=== PATIENT | female | born 1940 | race Hispanic/Latino ===

== ENCOUNTER 2017-06-25 08:42 | Outpatient (CLI) | payer MEDICARE ==
--- NOTE | 2017-06-25 09:47 | RAD ---
CHEST TWO VIEWS: History: Dyspnea. Comparison: 07-20-14 FINDINGS: Right upper lobe nodules similar to slightly increased in size from the comparison examination. Remainder of the lungs are clear. Prominent right nipple shadow. Lungs are mildly hyperinflated. Cardiac silhouette and mediastinal contours are similar. IMPRESSION: Right upper lobe hazy opacity versus nodule. CT of the chest recommended for further evaluation. Code LN Code T POS: OFF
== END 2017-06-25 08:43 | disposition home or self-care (01) ==
LOC: RAD 08:42
PROVIDERS: ATTEND Internal Medicine Critical Care Medicine
DX: R06.00 Dyspnea, unspecified (principal)
CPT/HCPCS: 71046

== ENCOUNTER 2020-07-12 13:57 | Inpatient (IN) | payer MEDICARE ==
[2020-07-12] MEDS ORDERED: HYDROcodone/Acetaminophen 5/325 mg Tablet ONE (14:36)
[2020-07-12] MEDS ORDERED: Ondansetron PF 4 MG/2 ML Vial ONE (15:41)
[2020-07-12] MEDS ORDERED: Morphine 4 MG/ML VIAL ONE (15:41)
[2020-07-12 16:13] LABS: #Eosinphils 0.1 thou/uL (0.0-0.7); #Lymphocytes 1.1 thou/uL (1.20-3.40); #Monocytes 0.5 thou/uL (0.11-0.59); #Neutrophils 8.5 thou/uL (1.40-6.50); %Basophils 0.4 % (0.0-1.0); %Eosinophils 0.8 % (0.0-10.0); %Lymphocytes 10.9 % (21.0-51.0); %Monocytes 5.3 % (0.0-10.0); %Neutrophils 82.7 % (42.0-75.0); Hemoglobin 14.9 g/dL (12.0-16.0); Mean Corpuscular HGB CONC 33.8 g/dL (32.0-36.0); Mean Corpuscular Volume 91.6 fL (78.0-98.0); Mean Platelet Volume 8.2 fL (7.4-10.4); Platelet Count 215 thou/uL (130-400); Red Blood Cell (RBC) Count 4.82 mill/uL (4.20-5.40); White Blood Cell (WBC) Count 10.3 thou/uL (4.8-10.8)
[2020-07-12 16:19] LABS: INR-International Normal Ratio 0.9; PTT 26.7 sec (22.9-36.1); Prothrombin Time 12.5 sec (12.0-14.7)
[2020-07-12 16:37] LABS: ALT (SGPT) 12 U/L (8-55); AST (SGOT) 18 U/L (5-34); Albumin 4.3 g/dL (3.4-4.8); Alkaline Phosphatase 88 U/L (40-110); Anion Gap 17 mmol/L (10-20); BUN (Urea Nitrogen) 19 mg/dL (9.8-20.1); Bilirubin, Total 0.4 mg/dL (0.2-1.2); Calc. Creatinine Clearance 0 mL/min (70-130); Calcium 9.5 mg/dL (7.8-10.44); Carbon Dioxide 22 mmol/L (23-31); Chloride 101 mmol/L (98-107); Globulin 3.4 g/dL (2.4-3.5); Glucose 101 mg/dL (83-110); Potassium 3.3 mmol/L (3.5-5.1); Protein, Total 7.7 g/dL (5.8-8.1); Sodium 137 mmol/L (136-145)
[2020-07-12] MEDS ORDERED: Dextrose 5% in Water 1,000 ML IV PRN (16:53)
[2020-07-12] MEDS ORDERED: Dextrose 50% Abboject 50 ML SYRINGE SLOW IVP PRN (16:53)
[2020-07-12] MEDS ORDERED: Ondansetron ODT 4 MG TAB PO PRN (16:58)
[2020-07-12] MEDS ORDERED: Morphine 2 MG/ML VIAL SLOW IVP PRN (16:58)
[2020-07-12] MEDS ORDERED: Albuterol Sulfate 1.25 MG/3 ML NEB IPPB PRN (17:02)
[2020-07-12] MEDS ORDERED: Potassium Phosphate 30 MMOL in Sodium Chloride 0.9% 500 ML IVPB SCH (17:15)
[2020-07-12] MEDS: Acetaminophen 325 MG TAB PO SCH ×2 (20:48→21:00)
[2020-07-12] MEDS: Lactated Ringer's 1,000 ML IV SCH (20:59)
[2020-07-12] MEDS: Atorvastatin Calcium 40 MG TAB PO SCH (21:01)
[2020-07-12] MEDS: Gabapentin 100 MG CAP PO SCH (21:01)
[2020-07-12] MEDS: Ibuprofen 200 MG TAB PO SCH (21:02)
[2020-07-12 23:25] VITALS: BMI 21.4
[2020-07-13] MEDS: Senokot S 8.6-50 MG TAB PO SCH ×3 (02:28→20:20)
[2020-07-13] MEDS: Acetaminophen 325 MG TAB PO SCH ×4 (04:41→22:39)
[2020-07-13] MEDS: Ibuprofen 200 MG TAB PO SCH ×3 (04:41→22:39)
[2020-07-13 06:15] LABS: Anion Gap 14 mmol/L (10-20); BUN (Urea Nitrogen) 17 mg/dL (9.8-20.1); Calc. Creatinine Clearance 57 mL/min (70-130); Calcium 8.4 mg/dL (7.8-10.44); Carbon Dioxide 25 mmol/L (23-31); Chloride 102 mmol/L (98-107); Glucose 140 mg/dL (83-110); Magnesium 1.7 mg/dL (1.6-2.6); Potassium 3.7 mmol/L (3.5-5.1); Sodium 137 mmol/L (136-145)
[2020-07-13 06:20] LABS: Phosphorus 4.9 mg/dL (2.3-4.7)
[2020-07-13] MEDS ORDERED: CEFAZOLIN 2 GM in Premix Bag 1 BAG IVPB SCH ×2 (07:15→07:30)
[2020-07-13 07:27] LABS: SARS-CoV-2 NAA Rapid Test Not Detected (NotDetected)
[2020-07-13] MEDS ORDERED: Magnesium 2 GM/50 ML 2 GM in Premix Bag 1 BAG IVPB SCH (07:45)
[2020-07-13] MEDS ORDERED: Magnesium Sulfate 2 GM in Sodium Chloride 0.9% 100 ML IVPB SCH (08:00)
[2020-07-13] MEDS: Atenolol 25 MG TAB PO SCH (08:50)
[2020-07-13] MEDS: Gabapentin 100 MG CAP PO SCH ×3 (08:50→20:20)
[2020-07-13] MEDS ORDERED: Atenolol 25 MG TAB PO SCH (09:00)
[2020-07-13] MEDS ORDERED: cefTRIAXone\\ROCEPHIN 1 GM in Sodium Chloride 0.9% 100 ML IVPB SCH (10:00)
[2020-07-13 11:00] LABS: Bilirubin Negative (Negative); Blood, Urine 2+ (Negative); Clarity Clear (Clear); Glucose, Urine (Dipstick) Normal (Negative); Ketone, Urine Negative (Negative); Leukocyte Negative Leu/uL (Negative); Nitrite Negative (Negative); Protein, Urine (Dipstick) 10 mg/dL (Neg-Trace); Specific Gravity, Urine 1.013 (1.002-1.036); Squamous Epithelial None Seen HPF (0-3); Urobilinogen Normal mg/dL (Less than 2); WBC/HPF None Seen HPF (0-3); pH, Urine 6.5 (5.0-9.0)
[2020-07-13 11:01] LABS: Bacteria/HPF 1+ HPF (None Seen)
[2020-07-13] MEDS: Polyethylene Glycol 3350 17 GM Packet PO SCH (11:03)
[2020-07-13] MEDS ORDERED: Fentanyl 100 MCG/2 ML VIAL ONE (14:03)
[2020-07-13] MEDS ORDERED: Rocuronium Bromide 10 MG/ML (10ML VIAL) ONE (14:26)
[2020-07-13] MEDS ORDERED: Lidocaine 1% PF 5 ML VIAL ONE (14:26)
[2020-07-13] MEDS ORDERED: Glycopyrrolate 0.2 MG/ML 5 ML SYRINGE ONE (14:26)
[2020-07-13] MEDS ORDERED: Dexamethasone 20 MG/5 ML VIAL ONE (14:26)
[2020-07-13] MEDS ORDERED: PHENYLEPHRINE-NS 100 MCG/ML 10 ML SYRINGE ONE (14:26)
[2020-07-13] MEDS ORDERED: PROPOFOL 200 MG/20 ML VIAL ONE (14:26)
[2020-07-13] MEDS ORDERED: Ondansetron PF 4 MG/2 ML Vial ONE (14:26)
[2020-07-13] MEDS ORDERED: SUGAMMADEX SODIUM 200 MG/2 ML VIAL ONE (15:15)
[2020-07-13] MEDS ORDERED: Promethazine HCl 25 MG/ML VIAL IM PRN (16:01)
[2020-07-13] MEDS ORDERED: Promethazine HCl 25 MG/ML VIAL SLOW IVP PRN (16:01)
[2020-07-13] MEDS ORDERED: Ondansetron HCl/PF 4 MG/2 ML Vial IVP PRN (16:01)
[2020-07-13] MEDS: Lactated Ringer's 1,000 ML IV SCH (18:38)
[2020-07-13] MEDS: Atorvastatin Calcium 40 MG TAB PO SCH (20:20)
[2020-07-13] MEDS: Nitrofurantoin Monohyd/M-Cryst 100 MG CAP PO SCH (20:20)
[2020-07-13] MEDS: CEFAZOLIN 2 GM in Premix Bag 1 BAG IVPB SCH (22:38)
[2020-07-14] MEDS: Lactated Ringer's 1,000 ML IV SCH ×3 (05:11→19:46)
[2020-07-14 05:39] LABS: #Basophils 0.2 thou/uL (0.0-0.2); #Lymphocytes 0.2 thou/uL (1.20-3.40); #Monocytes 0.6 thou/uL (0.11-0.59); #Neutrophils 10.5 thou/uL (1.40-6.50); %Basophils 1.4 % (0.0-1.0); %Lymphocytes 2.1 % (21.0-51.0); %Monocytes 4.8 % (0.0-10.0); %Neutrophils 91.6 % (42.0-75.0); Hemoglobin 11.9 g/dL (12.0-16.0); Mean Corpuscular Hemoglobin 30.5 pg (27.0-31.0); Mean Corpuscular Volume 92.2 fL (78.0-98.0); Mean Platelet Volume 8.8 fL (7.4-10.4); Platelet Count 164 thou/uL (130-400); White Blood Cell (WBC) Count 11.5 thou/uL (4.8-10.8)
[2020-07-14] MEDS: CEFAZOLIN 2 GM in Premix Bag 1 BAG IVPB SCH ×2 (05:46→13:41)
[2020-07-14] MEDS: Ibuprofen 200 MG TAB PO SCH ×3 (05:46→21:34)
[2020-07-14] MEDS: Acetaminophen 325 MG TAB PO SCH ×3 (05:47→18:00)
[2020-07-14] MEDS: Atenolol 25 MG TAB PO SCH (09:20)
[2020-07-14] MEDS: Gabapentin 100 MG CAP PO SCH ×3 (09:21→21:33)
[2020-07-14] MEDS: Senokot S 8.6-50 MG TAB PO SCH ×2 (09:22→21:34)
[2020-07-14] MEDS: Nitrofurantoin Monohyd/M-Cryst 100 MG CAP PO SCH ×2 (09:22→21:33)
[2020-07-14] MEDS: Aspirin 81 mg Enteric Coated Tablet PO SCH ×2 (09:22→21:33)
[2020-07-14] MEDS: Polyethylene Glycol 3350 17 GM Packet PO SCH (09:22)
[2020-07-14] MEDS: Atorvastatin Calcium 40 MG TAB PO SCH (21:33)
[2020-07-15] MEDS: Acetaminophen 325 MG TAB PO SCH ×3 (00:21→11:33)
[2020-07-15] MEDS: Lactated Ringer's 1,000 ML IV SCH (05:10)
[2020-07-15] MEDS: Ibuprofen 200 MG TAB PO SCH ×2 (05:16→14:48)
[2020-07-15 05:58] LABS: #Eosinphils 0.3 thou/uL (0.0-0.7); #Lymphocytes 1.2 thou/uL (1.20-3.40); #Monocytes 0.5 thou/uL (0.11-0.59); #Neutrophils 5.9 thou/uL (1.40-6.50); %Basophils 0.4 % (0.0-1.0); %Eosinophils 3.2 % (0.0-10.0); %Lymphocytes 15.4 % (21.0-51.0); %Monocytes 6.3 % (0.0-10.0); %Neutrophils 74.6 % (42.0-75.0); Hemoglobin 10.7 g/dL (12.0-16.0); Mean Corpuscular HGB CONC 32.6 g/dL (32.0-36.0); Mean Corpuscular Hemoglobin 30.1 pg (27.0-31.0); Mean Corpuscular Volume 92.3 fL (78.0-98.0); Mean Platelet Volume 9.1 fL (7.4-10.4); Platelet Count 146 thou/uL (130-400); RBC Distribution Width 12.1 % (11.5-14.5); Red Blood Cell (RBC) Count 3.55 mill/uL (4.20-5.40); White Blood Cell (WBC) Count 7.9 thou/uL (4.8-10.8)
[2020-07-15] MEDS: Polyethylene Glycol 3350 17 GM Packet PO SCH (08:29)
[2020-07-15] MEDS: Senokot S 8.6-50 MG TAB PO SCH (08:32)
[2020-07-15] MEDS: Atenolol 25 MG TAB PO SCH (08:32)
[2020-07-15] MEDS: Nitrofurantoin Monohyd/M-Cryst 100 MG CAP PO SCH (08:33)
[2020-07-15] MEDS: Aspirin 81 mg Enteric Coated Tablet PO SCH (08:33)
[2020-07-15] MEDS: Gabapentin 100 MG CAP PO SCH ×2 (08:33→14:48)
[2020-07-15 11:39] VITALS: BP 128/70; TEMP 98.1
== END 2020-07-15 15:00 | disposition home or self-care (01) | DRG 522 ==
LOC: ERS 13:57 → SURG A 16:33
PROVIDERS: ADMIT Surgery; ATTEND Surgery
PROC: 0SRR0JZ Replacement of Right Hip Joint, Femoral Surface with Synthetic Substitute, Open Approach (ICD-10-PCS; principal; 2020-07-13)
DX: S72.031A Displaced midcervical fracture of right femur, initial encounter for closed fracture (principal); N39.0 Urinary tract infection, site not specified; W01.0XXA Fall on same level from slipping, tripping and stumbling without subsequent striking against object, initial encounter; I10 Essential (primary) hypertension; J45.909 Unspecified asthma, uncomplicated; E78.5 Hyperlipidemia, unspecified; E87.6 Hypokalemia; Z20.822 Contact with and (suspected) exposure to COVID-19; Y92.000 Kitchen of unspecified non-institutional (private) residence as the place of occurrence of the external cause; Z79.82 Long term (current) use of aspirin; Z90.49 Acquired absence of other specified parts of digestive tract; Z95.5 Presence of coronary angioplasty implant and graft
CPT/HCPCS: 36415; 71045; 72170; 80048; 80053; 81003; 81015; 83735; 84100; 85025; 85610; 85730; 93005; 94640; 96374; 96375; G0390; J0690; J1100; J2270; J2405; J2704; J3010; J3475; J7030; J7620; Q0162; U0002